=== PATIENT | female | born 1955 | race Caucasian/White ===

== ENCOUNTER 2019-12-20 09:03 | Outpatient (CLI) | payer OTHER, SELFPAY ==
--- NOTE | 2019-12-20 09:09 | MM_ITS ---
WS: [id number] SCREENING DIGITAL MAMMOGRAM WITH CAD HISTORY: SCREENING COMPARISON: 03/08/2018 and 06/24/2009 Bilateral CC and MLO views submitted. Computer aided detection analyzed. Breast composition: The breasts are almost entirely fatty. No suspicious masses, microcalcifications or architectural distortion. MM/[place] [id number] IMPRESSION: BI-RADS: 1-Negative FOLLOW UP: 1 Year Follow-up
== END 2019-12-20 09:04 | disposition home or self-care (01) ==
LOC: RADSHAW 09:07
PROVIDERS: PCP Family Medicine; Visit Provider Family Medicine
DX: Z12.31 Encounter for screening mammogram for malignant neoplasm of breast (principal)
CPT/HCPCS: 77067

== ENCOUNTER 2021-01-13 09:41 | Outpatient (CLI) | payer OTHER, SELFPAY ==
--- NOTE | 2021-01-13 09:45 | MM_ITS ---
WS: [id number] Exam: [place] [id number] Date/Time of Exam: 01/13/2021 9:59 AM Reason For Exam: SCREENING VIEWS: MLO and CC views both breasts. Comparison made with prior exam of 06/24/2009, 03/08/2018 and 03/21/2019. Findings: There was no sign of mass, architectural distortion or suspicious calcification in either breast. Fa tty MM/[place] [id number] Impression: BI-RADS: 1-Negative FOLLOW-UP: 1 Year Follow-up This mammogram was also analyzed by the Computer Aided Detection System R2 Imag e Technical Inspector.
== END 2021-01-13 09:42 | disposition home or self-care (01) ==
LOC: RADSHAW 09:44
PROVIDERS: PCP Family Medicine; Visit Provider Family Medicine
DX: Z12.39 Encounter for other screening for malignant neoplasm of breast (principal)
CPT/HCPCS: 77067

== ENCOUNTER 2022-03-03 07:31 | Outpatient (CLI) | payer OTHER, SELFPAY ==
--- NOTE | 2022-03-03 07:47 | MM_ITS ---
WS: [id number] Bilateral screening 3D tomosynthesis digital mammogram, 03/03/2022 Clinical Data: SCREENING Comparison: 01/13/2021, 12/20/2019, 03/08/2018, 06/24/2009, 07/24/2008, 03/01/2007. Findings: The breast parenchymal pattern shows fat replacement. No spiculated masses or clustered calcification s are seen. There are no secondary signs of carcinoma. MM/[place] [id number] Impression: 1. Negative bilateral mammogram unchanged. 2. Recommend annual screening mammograms. BIRADS: 1-Negative FOLLOW UP: 1 Year Follow-up The CAD finished cloth checker was used.
== END 2022-03-03 07:32 | disposition home or self-care (01) ==
LOC: RAD 07:32
PROVIDERS: PCP Family Medicine; Visit Provider Family Medicine
DX: Z12.31 Encounter for screening mammogram for malignant neoplasm of breast (principal)
CPT/HCPCS: 77063; 77067

== ENCOUNTER 2022-12-23 13:14 | Outpatient (CLI) | payer MEDICARE, OTHER, SELFPAY | END 2022-12-23 13:15 | disposition home or self-care (01) | LOC: RAD 13:19 | PROVIDERS: PCP Family Medicine; Visit Provider Family Medicine | DX: Z78.0 Asymptomatic menopausal state (principal) | CPT/HCPCS: 77080 ==

== ENCOUNTER 2022-12-24 13:07 | Outpatient (CLI) | payer MEDICARE, OTHER, SELFPAY ==
--- NOTE | 2022-12-24 13:20 | XR_ITS ---
WS: [id number] DEXA (DUAL ENERGY X-RAY ABSORPTIOMETRY) Bone mineral density was performed using a [employer] machine. HISTORY: POSTMENOPAUSAL COMPARISON: None available. Lumbar spine BMD (L1-L4): 1.239 g/cm2 T score: 0.5 Z score: 1.5 Total hip BMD: Left: 0.994 g/cm2. T score: -0.1 Z score: 0.7 Right: 0.980 g/cm2. T score: -0.2 Z score: 0.6 10 year probability of a major osteoporotic fracture is 8.2%. IMPRESSION: NORMAL BONE MINERAL DENSITY based upon the WHO classification for females.
== END 2022-12-24 13:08 | disposition home or self-care (01) ==
LOC: RAD 13:07
PROVIDERS: PCP Family Medicine; Visit Provider Family Medicine
DX: Z78.0 Asymptomatic menopausal state (principal)
CPT/HCPCS: 77080

== ENCOUNTER 2023-03-04 07:34 | Outpatient (CLI) | payer MEDICARE, OTHER, SELFPAY ==
--- NOTE | 2023-03-04 07:40 | MM_ITS ---
WS: [id number] BILATERAL SCREENING DIGITAL TOMOSYNTHESIS MAMMOGRAM WITH CAD HISTORY: SCREEN COMPARISON: 03/03/2022 and 01/13/2021 Bilateral CC and MLO views with tomosynthesis and synthetic mammography submitted. Computer aided det ection analyzed. Breast composition: The breasts are almost entirely fatty. No suspicious masses, microcalcifications or architectural distortion. IMPRESSION: MM/[place] [id number] BI-RADS: 1-Negative FOLLOW UP: 1 Year Follow-up
== END 2023-03-04 07:35 | disposition home or self-care (01) ==
LOC: RAD 07:35
PROVIDERS: PCP Family Medicine; Visit Provider Family Medicine
DX: Z12.31 Encounter for screening mammogram for malignant neoplasm of breast (principal)
CPT/HCPCS: 77063; 77067

== ENCOUNTER 2024-06-22 10:05 | Outpatient (CLI) | payer MEDICARE, OTHER, SELFPAY ==
--- NOTE | 2024-06-22 10:08 | MM_ITS ---
WS: [id number] SCREENING DIGITAL TOMOSYNTHESIS MAMMOGRAM WITH CAD HISTORY: SCREENING COMPARISON: 03/04/2023, 03/03/2022 Bilateral CC and MLO with tomosynthesis views submitted. Synthetic mammography reviewed. Computer aided detection analyzed. Breast composition: The breasts are almost entirely fatty. No suspicious masses, microcalcifications or architectural distortion. MM/MM scr BI tomosynthesis [id number] IMPRESSION: BI-RADS: 1 - Negative. FOLLOW UP: 1 Year Follow-up
== END 2024-06-22 10:06 | disposition home or self-care (01) ==
PROVIDERS: PCP Family Medicine; Visit Provider Family Medicine
DX: Z12.31 Encounter for screening mammogram for malignant neoplasm of breast (principal); R92.313 Mammographic fatty tissue density, bilateral breasts
CPT/HCPCS: 77063; 77067

== ENCOUNTER 2024-08-24 07:14 | Outpatient (CLI) | payer MEDICARE, OTHER, SELFPAY ==
--- NOTE | 2024-08-24 07:17 | CT_ITS ---
WS: [id number] CT ABDOMEN AND PELVIS WITH CONTRAST HISTORY: LEFT LOWER QUADRANT PAIN TECHNIQUE: Imaging performed of the abdomen and pelvis with IV contrast. Single phase imaging of the abdomen. Coronal and sagittal reformats are submitted. All CT scans at [facility] use at least one of these dose optimization techniques: automated exposure control; mA and/or kV adjustment per patient size (includes targeted exams where dose is matched to clinical indication); or iterative reconstruction. IV CONTRAST: Omnipaque 350; 100 mL IV. Oral contrast: Yes. DLP: 761.24 mGy.cm COMPARISON: 11/08/2011 Lower thorax: Lung bases are clear. Heart is normal size. No hiatal hernia. Liver/biliary system: Scattered granulomata. Mild hepatic steatosis. No mass. Normal portal vein. No ductal dilatation. Gallbladder: Status post cholecystectomy. Pancreas: Normal size pancreas and pancreatic duct. No adjacent inflammation. Spleen: Normal spleen with granulomata. Several adjacent splenules. Adrenal glands: Normal. Right kidney: Normal. Left kidney: Normal. Aorta: Mild atherosclerosis with no aneurysm. Lymphadenopathy: None. Free fluid: None. GI tract: Stomach is well distended with oral contrast. No small bowel obstruction. Diffuse constipation and fecal retention. Prior appendectomy. Increasing diverticular burden in the descending and sigmoid colon. Numerous diverticula in the sigmoid colon. Fat stranding surrounding the sigmoid and de leon ges of acute diverticulitis. Focal outpouching from the distal sigmoid extends to the RIGHT measures 1.8 x 0.9 cm and consistent with a small abscess associated with the diverticulum. Abdominal wall: Fat containing umbilical hernia. Pelvis: No free fluid or adenopathy within the pelvis. Uterus is midline and atrophic. Fatty atrophy and replacement muscle surrounding the LEFT hip. Bones: Mild degenerative scoliosis. No destructive bone lesions. CT/CT abdomen pelvis w con* [id number] IMPRESSION: 1. Acute sigmoid diverticulitis. 2. Small diverticular abscess associated with the sigmoid diverticulitis. Absc ess measures 1.8 x 0.9 cm and is deep within the pelvis extending to the RIGHT from the sigmoid. 3. No free fluid or free air. 4. Prior cholecystectomy. 5. Prior appendectomy. 6. Prior granulomatous disease. Notified Jonas Watt MD at 08/24/2024 8:43 AM.
[2024-08-24] MEDS: iohexol 350 mg/mL 500 mL Btl (per mL) IV (08:00)
[2024-08-24] MEDS: iohexol 350 mg/mL 500 mL Btl (per mL) PO (08:01)
== END 2024-08-24 07:15 | disposition home or self-care (01) ==
LOC: RAD 07:14
PROVIDERS: PCP Family Medicine; Visit Provider Family Medicine
DX: K57.20 Diverticulitis of large intestine with perforation and abscess without bleeding (principal); Z90.49 Acquired absence of other specified parts of digestive tract
CPT/HCPCS: 74177

== ENCOUNTER 2025-02-05 12:31 | Outpatient (CLI) | payer MEDICARE, OTHER, SELFPAY ==
--- NOTE | 2025-02-05 12:35 | XR_ITS ---
WS: [email or web address] SCREENING DEXA SCAN [employer] CLINICAL INFORMATION: OSTEOPOROSIS SCREENING COMPARISON: 2022 FINDINGS: The L1-L4 bone mineral density measures 1.184 g/cm2. This corresponds to a T score score of 0.0 and Z score of 1.0. Left femoral neck bone mineral density measures 0.958 g/cm2. This corresponds to a T score of -0.4 and Z score of 0.5. Right femoral neck bone mineral density measures 0.950 g/cm2. This corresponds to a T score -0.5of and Z score of 0.4. Mean femoral neck bone mineral density measures 0.954 g/cm2. This corresponds to a T score of -0.4 and Z score of 0.4. XR/XR DEXA axial skeleton* [id number] IMPRESSION: Normal bone mineralization lumbar spine and femoral necks.. Patient's FRAX calculated 10 year probability for major osteoporotic fracture i s 8.2% and osteoporotic hip fracture is 0.7%.
== END 2025-02-05 12:32 | disposition home or self-care (01) ==
LOC: RAD 12:32
PROVIDERS: PCP Family Medicine; Visit Provider Family Medicine
DX: Z13.820 Encounter for screening for osteoporosis (principal); M81.0 Age-related osteoporosis without current pathological fracture
CPT/HCPCS: 77080